=== PATIENT | male | born 1940 | race Caucasian/White ===

== ENCOUNTER 2016-06-22 09:29 | Outpatient (CLI) | payer MEDICARE ==
[2016-06-22 10:53] LABS: Bilirubin Negative (Negative); Blood, Urine Negative (Negative); Glucose, Urine (Dipstick) Negative (Negative); Ketone, Urine Negative (Negative); Nitrite Negative (Negative); Protein, Urine (Dipstick) Negative (Neg-Trace); Urobilinogen 0.2 mg/dL (0.2-1.0)
[2016-06-22 11:08] LABS: Hematocrit 40.1 % (42.0-52.0); Mean Platelet Volume 6.8 fL (7.4-10.4); Red Blood Cell (RBC) Count 4.43 mill/uL (4.70-6.10); White Blood Cell (WBC) Count 7.6 thou/uL (4.8-10.8)
[2016-06-22 11:22] LABS: ALT (SGPT) 23 U/L (0-55); AST (SGOT) 19 U/L (5-34); Alkaline Phosphatase 73 U/L (40-150); Anion Gap 12 mmol/L (10-20); BUN (Urea Nitrogen) 14 mg/dL (8.4-25.7); Bilirubin, Total 0.4 mg/dL (0.2-1.2); Calc. Creatinine Clearance 0 mL/min (70-130); Calcium 9.4 mg/dL (7.8-10.44); Carbon Dioxide 29 mmol/L (23-31); Chloride 103 mmol/L (98-107); Estimated GFR-MDRD 86; Globulin 2.8 g/dL (2.4-3.5); LDL Cholesterol, Calculated 69 mg/dL; Protein, Total 7.1 g/dL (5.8-8.1)
[2016-06-22 11:27] LABS: Hemoglobin A1c 6.2 % (4.0-6.0)
[2016-06-22 18:26] LABS: Microalbumin Urine Less than 1.0 mg/dL (0.5-50.0)
== END 2016-06-22 09:30 | disposition home or self-care (01) ==
LOC: NAV LAB 09:29
PROVIDERS: ATTEND Internal Medicine
DX: Z00.00 Encounter for general adult medical examination without abnormal findings (principal); E11.9 Type 2 diabetes mellitus without complications; E55.9 Vitamin D deficiency, unspecified; N40.0 Benign prostatic hyperplasia without lower urinary tract symptoms; I10 Essential (primary) hypertension; R53.83 Other fatigue; E66.9 Obesity, unspecified; Z79.899 Other long term (current) drug therapy
CPT/HCPCS: 36415; 80053; 80061; 81003; 82043; 82306; 82570; 83036; 84153; 84443; 85027

== ENCOUNTER 2016-08-05 09:57 | Outpatient (CLI) | payer MEDICARE ==
[2016-08-05 12:42] LABS: Bilirubin Negative (Negative); Blood, Urine Negative (Negative); Glucose, Urine (Dipstick) Negative (Negative); Ketone, Urine Negative (Negative); Nitrite Negative (Negative); Protein, Urine (Dipstick) Negative (Neg-Trace); Urobilinogen 0.2 mg/dL (0.2-1.0)
[2016-08-05 14:03] LABS: Bacteria/HPF Rare-Few HPF (None Seen); RBC/HPF None Seen HPF (0-3); Squamous Epithelial None Seen HPF (0-3); WBC/HPF 0-3 HPF (0-3)
== END 2016-08-05 09:58 | disposition home or self-care (01) ==
LOC: NAV LAB 09:57
PROVIDERS: ATTEND Internal Medicine
DX: R30.0 Dysuria (principal); N39.0 Urinary tract infection, site not specified
CPT/HCPCS: 81001; 87086

== ENCOUNTER 2016-12-14 09:03 | Outpatient (CLI) | payer MEDICARE ==
[2016-12-14 10:08] LABS: Hemoglobin 11.9 g/dL (14.0-18.0); Mean Corpuscular HGB CONC 32.8 g/dL (32.0-36.0); Mean Corpuscular Hemoglobin 28.5 pg (27.0-31.0); Mean Corpuscular Volume 87.2 fl (80.0-94.0); Mean Platelet Volume 6.9 fL (7.4-10.4); Platelet Count 229 thou/uL (130-400); RBC Distribution Width 12.3 % (11.5-14.5); Red Blood Cell (RBC) Count 4.17 mill/uL (4.70-6.10); White Blood Cell (WBC) Count 6.6 thou/uL (4.8-10.8)
[2016-12-14 10:18] LABS: ALT (SGPT) 17 U/L (8-55); AST (SGOT) 19 U/L (5-34); Albumin 4.1 g/dL (3.4-4.8); Alkaline Phosphatase 70 U/L (40-150); Anion Gap 15 mmol/L (10-20); BUN (Urea Nitrogen) 10 mg/dL (8.4-25.7); Bilirubin, Total 0.3 mg/dL (0.2-1.2); Calc. Creatinine Clearance 0 mL/min (70-130); Calcium 9.4 mg/dL (7.8-10.44); Carbon Dioxide 23 mmol/L (23-31); Cardiac Risk 2.6 (Less than 4.5); Chloride 103 mmol/L (98-107); Cholesterol 105 mg/dl (< 200 Desired); Estimated GFR-MDRD 88; Glucose 107 mg/dL (83-110); HDL Cholesterol 41 mg/dL (>60 Neg Risk); LDL Cholesterol, Calculated 52 mg/dL; Potassium 4.3 mmol/L (3.5-5.1); Protein, Total 7.1 g/dL (5.8-8.1); Sodium 137 mmol/L (136-145); Triglycerides 62 mg/dL (Less than 150)
[2016-12-14 10:25] LABS: Hemoglobin A1c 5.8 % (4.0-6.0)
== END 2016-12-14 09:04 | disposition home or self-care (01) ==
LOC: NAV LAB 09:03
PROVIDERS: ATTEND Internal Medicine
DX: E11.9 Type 2 diabetes mellitus without complications (principal); D50.0 Iron deficiency anemia secondary to blood loss (chronic); E78.00 Pure hypercholesterolemia, unspecified; R53.83 Other fatigue; I10 Essential (primary) hypertension
CPT/HCPCS: 80053; 80061; 83036; 85027